=== PATIENT | female | born 1990 | race Caucasian/White ===

== ENCOUNTER 2016-05-26 15:53 | Emergency (ER) | payer OTHER ==
[~2016-05-26 15:53] MED LIST: ACET50TA PO; PRENTAB7 PO
[2016-05-26 18:05] LABS: BASO % 0.4 % (0.0-1.0); EOS # 0.2 K/mm3 (0.0-0.50); EOS % 2.2 % (0.0-3.0); LARGE UNSTAINED CELL # 0.1 K/mm3 (0.0-0.4); LARGE UNSTAINED CELL % 2.1 % (0.0-4.0); LYMPH # 1.8 K/mm3 (1.5-6.5); LYMPH % 25.7 % (24.0-44.0); MEAN CORPUSCULAR HEMOGLOBIN 30.3 pg (27.0-33.0); MEAN CORPUSCULAR HGB CONC 33.4 g/dl (32.0-36.5); MEAN CORPUSCULAR VOLUME 90.5 fl (80.0-96.0); MONO # 0.4 K/mm3 (0.0-0.8); MONO % 6.1 % (0.0-5.0); NEUTROPHILS # 4.4 K/mm3 (1.8-7.7); NEUTROPHILS % 63.6 % (36.0-66.0); PLATELET COUNT, AUTOMATED 179 k/mm3 (150-450); RED CELL DISTRIBUTION WIDTH 12.2 % (11.5-14.5); WHITE BLOOD COUNT 6.9 K/mm3 (4.0-10.0)
--- NOTE | 2016-05-26 18:33 | REP ---
Clinical: Renal colic. Technique: Real time thomas scale ultrasound examination using curved array transducer. Findings: With the exception of a 2 cm simple left lower pole renal cyst, the bilateral kidneys are normal in contour, size, echogenicity, and reniform shape. No hydronephrosis, nephrolithiasis, perinephric fluid or mass lesions are identified. Right kidney measures 10.7 x 4.5 x 4.5 cm. Left kidney measures 11.0 x 4.4 x 5.0 cm. The bladder is collapsed. Impression: 2 cm simple left renal cyst. Otherwise normal renal ultrasound. Signed by Alfonso Casas MD 05/26/2016 06:25 P
[2016-05-26 18:39] LABS: ANION GAP 7 MEQ/L (8-16); BLOOD UREA NITROGEN 7 MG/DL (7-18); CALCIUM LEVEL 9.1 MG/DL (8.5-10.1); CARBON DIOXIDE LEVEL 30 MEQ/L (21-32); CHLORIDE LEVEL 105 MEQ/L (98-107); CREATININE FOR GFR 0.79 MG/DL (0.55-1.02); GLOMERULAR FILTRATION RATE > 60.0 (>60); GLUCOSE, FASTING 83 MG/DL (70-105); POTASSIUM SERUM 3.8 MEQ/L (3.5-5.1); SODIUM LEVEL 142 MEQ/L (136-145)
[2016-05-26] MEDS ORDERED: CIPROFLOXACIN 500 MG TAB As Ordered ONE (19:56)
--- NOTE | 2016-05-26 20:12 | EDDOCDS ---
Nurse's Notes [facility] Name: Kate Ritter Age: 26 yrs Sex: Female : 1990 Arrival Date: 05/26/2016 Time: 15:53 Bed 15 Private MD: BARRETT Castro Diagnosis: Urinary tract infection, site not specified Presentation: 05/26 15:56 Presenting complaint:. dls 15:57 Presenting complaint: Patient states: Pt presents with c/o bilateral flank and lower dls abdominal pain x 2 days also urine has strong odor and pt has urinary urgency and frequency. Acute neurological deficits are not present. Mechanism of Injury: No Mechanism of Injury. Adult Sepsis Screening: The patient does not have new or worsening altered mentation. Patient's respiratory rate is less than 22. Systolic blood pressure is greater than 100. Patient has a qSOFA score of 0- Negative Sepsis Screen. Suicide/Homicide risk assessment- the patient denies having any suicidal and/or homicidal ideations and does not present with any other emotional, behavioral or mental health complaints. Status: The patient is a dependent. Transition of care: patient was not received from another setting of care. 15:57 Acuity: JOEY Level 3 dls 15:57 Method Of Arrival: Walkin/Carried/Asstd dls Triage Assessment: 16:02 General: Appears distressed, slender, uncomfortable, well developed, well nourished, dls well groomed, Behavior is cooperative. Pain: Pain currently is 6 out of 10 on a pain scale. HIV screening NA for this visit Offered previously. 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 Zoloft 75mg Oral tab 1 tab once daily 2. triliptal 150mg twice a day 3. clonazepam 0.5 mg Oral tab 1 tab daily - PMHx: anixety; Back issues, burning sensation in legs; Seizures; - PSHx: none; - Social history: Smoking status: Patient/guardian denies using No barriers to communication noted, The patient speaks fluent Portuguese. - Family history: Not pertinent. - : The pt / caregiver states he / she is not on anticoagulants. Home medication list is obtained from the patient. - Exposure Risk Screening:: None identified. Screenin:59 Screening information is obtained from the patient. Fall risk: No risks identified. [facility] Assistance ADL's: requires no assistance with activities of daily living. Abuse/DV Screen: The patient / caregiver reports he/she is: not in a situation that causes fear, pain or injury. Nutritional screening: No deficits noted. Advance Directives: There is no active DNR order. home support is adequate. Assessment: 18:00 General: Appears in no apparent distress, Behavior is cooperative. Pain: Location: low ld5 back area and mid back area Pain currently is 5 out of 10 on a pain scale. Pain radiates to anterior aspect of right lateral abdomen and anterior aspect of left lateral abdomen. Neurological: Level of Consciousness is awake, alert. Respiratory: Airway is patent Respiratory effort is even, unlabored. GI: Abdomen is non- distended Reports nausea, Denies vomiting. : Denies burning with urination, pain with urination. Derm: Skin is intact, Skin is dry. Musculoskeletal: Range of motion intact in all extremities. 19:59 General: Appears in no apparent distress, comfortable, Behavior is appropriate for age, [facility] cooperative. Pain: Location: abdomen and anterior aspect of left lateral abdomen and anterior aspect of right lateral abdomen and back and mid back area and low back area Pain currently is 5 out of 10 on a pain scale. Neurological: Level of Consciousness is awake, alert, Oriented to person, place, time. Respiratory: Airway is patent Respiratory effort is even, unlabored, Respiratory pattern is regular, symmetrical. Derm: Skin is pink, warm & dry. 20:09 General: reviewed discharge instructions with patient, encouraged and answered [facility] questions, declines offer of further assistance, no new problems or complaints voiced. Vital Signs: 15:57 BP 97 / 60; Pulse 94; Resp 18 S; Temp 96.4(O); Pulse Ox 99% on R/A; Weight 53.98 kg gr2 (R); Height 5 ft. 3 in. (160.02 cm) (R); Pain 5/10; 20:02 BP 110 / 62; Pulse 78; Resp 16; Temp 99.9; Pulse Ox 99% ; Pain 5/10; [facility] 15:57 Body Mass Index 21.08 (53.98 kg, 160.02 cm) 2 Vitals: 15:57 Log In Time: May 26, 2016 at 15:57. gr2 ED Course: 15:56 Patient visited by Lucian Espinal. gr2 15:56 [facility] is Private Physician. gr2 15:56 Patient moved to Waiting gr2 15:58 Patient visited by Lucian Espinal. gr2 15:59 Patient moved to Pre RCE gr2 16:00 Triage Initiated dls 17:15 Patient moved to 15 kcs 17:31 [facility] le 17:51 Patient visited by Raegan Rose FNP. le 17:51 Patient visited by Raegan Rose FNP. le 18:04 Patient moved to Ultrasound br3 18:05 UA Sent. ld5 18:05 Inserted saline lock: 20 gauge in right antecubital area and blood collected. The ld5 patient tolerated the procedure well. Labs drawn. (by ED staff). Sent per order to lab. Urine collected. Clean catch specimen. Urine specimen sent to lab. 18:12 Patient visited by Justina Godfrey RN. ld5 18:19 Patient moved to 15 br3 18:42 US Renal Returned. EDMS 19:39 [facility] Payment Agreement was scanned into [employer] and attached to record. zo 19:53 Matthew [facility] is Referral Physician. le 19:59 The patient / caregiver is instructed regarding the plan of care and ED course. [facility] 19:59 No procedures done that require assistance. [facility] 20:09 Discontinued lock intact, bleeding controlled, pressure dressing applied, No [facility] redness/swelling at site. Administered Medications: 18:05 Drug: NS 0.9% 1000 ml [sodium chloride 0.9 % intravenous solution] Route: IV; Rate: ld5 bolus; Site: right antecubital; 20:11 Follow up: IV Status: Completed infusion; IV Intake: 1000ml [facility] 19:59 Drug: Ciprofloxacin 500 mg [ciprofloxacin 500 mg tablet (1 tabs)] Route: PO; [facility] 20:11 Follow up: Response: Pt left department before re-evaluation is appropriate [facility] Point of Care Testing: Urine : 18:05 hCG Reading: Negative; Control Reading: Positive; ld5 Ranges: Order Results: Lab Order: CBC with Diff; SPEC'M 05/26/16 17:56 Test: WHITE BLOOD COUNT; Value: 6.9; Range: 4.0-10.0; Units: K/mm3; Status: F Test: RED BLOOD COUNT; Value: 3.94; Range: 4.00-5.40; Abnormal: Below low normal; Units: M/mm3; Status: F Test: HEMOGLOBIN; Value: 11.9; Range: 12.0-16.0; Abnormal: Below low normal; Units: g/dl; Status: F Test: HEMATOCRIT; Value: 35.7; Range: 36.0-47.0; Abnormal: Below low normal; Units: %; Status: F Test: MEAN CORPUSCULAR VOLUME; Value: 90.5; Range: 80.0-96.0; Units: fl; Status: F Test: MEAN CORPUSCULAR HEMOGLOBIN; Value: 30.3; Range: 27.0-33.0; Units: pg; Status: F Test: MEAN CORPUSCULAR HGB CONC; Value: 33.4; Range: 32.0-36.5; Units: g/dl; Status: F Test: RED CELL DISTRIBUTION WIDTH; Value: 12.2; Range: 11.5-14.5; Units: %; Status: F Test: PLATELET COUNT, AUTOMATED; Value: 179; Range: 150-450; Units: k/mm3; Status: F Test: NEUTROPHILS %; Value: 63.6; Range: 36.0-66.0; Units: %; Status: F Test: LYMPH %; Value: 25.7; Range: 24.0-44.0; Units: %; Status: F Test: MONO %; Value: 6.1; Range: 0.0-5.0; Abnormal: Above high normal; Units: %; Status: F Test: EOS %; Value: 2.2; Range: 0.0-3.0; Units: %; Status: F Test: BASO %; Value: 0.4; Range: 0.0-1.0; Units: %; Status: F Test: LARGE UNSTAINED CELL %; Value: 2.1; Range: 0.0-4.0; Units: %; Status: F Test: NEUTROPHILS #; Value: 4.4; Range: 1.8-7.7; Units: K/mm3; Status: F Test: LYMPH #; Value: 1.8; Range: 1.5-6.5; Units: K/mm3; Status: F Test: MONO #; Value: 0.4; Range: 0.0-0.8; Units: K/mm3; Status: F Test: EOS #; Value: 0.2; Range: 0.0-0.50; Units: K/mm3; Status: F Test: BASO #; Value: 0.0; Range: 0.0-0.2; Units: K/mm3; Status: F Test: LARGE UNSTAINED CELL #; Value: 0.1; Range: 0.0-0.4; Units: K/mm3; Status: F Lab Order: BMP; SPEC'M 05/26/16 17:56 Test: GLUCOSE, FASTING; Value: 83; Range: 70-105; Units: MG/DL; Status: F Test: BLOOD UREA NITROGEN; Value: 7; Range: 7-18; Units: MG/DL; Status: F Test: CREATININE FOR GFR; Value: 0.79; Range: 0.55-1.02; Units: MG/DL; Status: F Test: GLOMERULAR FILTRATION RATE; Value: > 60.0; Range: >60; Status: F Test: SODIUM LEVEL; Value: 142; Range: 136-145; Units: MEQ/L; Status: F Test: POTASSIUM SERUM; Value: 3.8; Range: 3.5-5.1; Units: MEQ/L; Status: F Test: CHLORIDE LEVEL; Value: 105; Range: 98-107; Units: MEQ/L; Status: F Test: CARBON DIOXIDE LEVEL; Value: 30; Range: 21-32; Units: MEQ/L; Status: F Test: ANION GAP; Value: 7; Range: 8-16; Abnormal: Below low normal; Units: MEQ/L; Status: F Test: CALCIUM LEVEL; Value: 9.1; Range: 8.5-10.1; Units: MG/DL; Status: F Test Note: ; Units are mL/min/1.73 m2 Chronic Kidney Disease Staging per NKF: Stage I & II GFR >=60 Normal to Mildly Decreased Stage III GFR 30-59 Moderately Decreased Stage IV GFR 15-29 Severely Decreased Stage V GFR <15 Very Little GFR Left ESRD GFR <15 on FIELD RECRUITER Lab Order: UA; SPEC'M 02/13/17 17:52 Test: APPEARANCE, URINE; Value: CLOUDY; Range: CLEAR; Abnormal: Above high normal; Status: F Test: COLOR, URINE; Value: YELLOW; Range: YELLOW; Status: F Test: PH,URINE; Value: 5.0; Range: 5.0-9.0; Units: UNITS; Status: F Test: SPECIFIC GRAVITY URINE AUTO; Value: 1.014; Range: 1.002-1.035; Status: F Test: PROTEIN, URINE AUTO; Value: 2+; Range: NEGATIVE; Abnormal: Above high normal; Units: mg/dL; Status: F Test: GLUCOSE, URINE (UA) AUTO; Value: NEGATIVE; Range: NEGATIVE; Units: mg/dL; Status: F Test: KETONE, URINE AUTO; Value: NEGATIVE; Range: NEGATIVE; Units: mg/dL; Status: F Test: UROBILINOGEN, URINE AUTO; Value: 0.2; Range: 0.0-2.0; Units: mg/dL; Status: F Test: BILIRUBIN, URINE AUTO; Value: NEGATIVE; Range: NEGATIVE; Status: F Test: NITRITE, URINE AUTO; Value: NEGATIVE; Range: NEGATIVE; Status: F Test: LEUKOCYTE ESTERASE, URINE AUTO; Value: 3+; Range: NEGATIVE; Abnormal: Above high normal; Status: F Test: BLOOD, URINE BLOOD; Value: 2+; Range: NEGATIVE; Abnormal: Above high normal; Status: F Test: WBC, URINE AUTO; Value: TNTC; Range: 0-3; Abnormal: Above high normal; Units: /HPF; Status: F Test: RBC, URINE AUTO; Value: 104; Range: 0-3; Abnormal: Above high normal; Units: /HPF; Status: F Test: BACTERIA, URINE AUTO; Value: 3+; Range: NEGATIVE; Abnormal: Above high normal; Status: F Test: SQUAMOUS EPITHELIAL CELL UR AU; Value: 4; Range: 0-6; Units: /HPF; Status: F Test: MUCUS, URINE; Value: SMALL; Range: NEGATIVE; Status: F Test: HYALINE CAST, URINE AUTO; Value: 0; Range: 0-1; Units: /LPF; Status: F Radiology Order: US Renal Test: US Renal REASON FOR EXAMINATION: Renal colic; Clinical: Renal colic.; ; Technique: Real time thomas scale ultrasound examination using curved array; transducer.; ; Findings:; With the exception of a 2 cm simple left lower pole renal cyst, the bilateral; kidneys are normal in contour, size, echogenicity, and reniform shape. No; hydronephrosis, nephrolithiasis, perinephric fluid or mass lesions are; identified. Right kidney measures 10.7 x 4.5 x 4.5 cm. Left kidney measures; 11.0 x 4.4 x 5.0 cm. The bladder is collapsed.; ; Impression:; 2 cm simple left renal cyst.; Otherwise normal renal ultrasound.; ; ; Signed by; Alfonso Casas MD 05/26/2016 06:25 P; Outcome: 19:53 Discharge ordered by Provider. 20:01 Ultrasound Study completed. [facility] 20:09 Discharge Assessment: Patient awake, alert and oriented x 3. No cognitive and/or [facility] functional deficits noted. Patient verbalized understanding of disposition instructions. patient administered narcotics - no. The following High Risk Discharge criteria are identified: None. Discharged to home ambulatory. Condition: good Condition: stable Condition: improved. Discharge instructions given to patient, Instructed on discharge instructions, follow up and referral plans. medication usage, Demonstrated understanding of instructions, medications, Pt was receptive of discharge instructions/ teaching. Prescriptions given X 1. Property :Personal belongings accompany Pt. 20:10 Patient left the ED. [facility] Signatures: Dispatcher [employer] Belkis Acosta, RN Rachel Olsen RN RN dls Iliana Garcia Lisa, COUNSEL COUNSEL Najma Toussaint br3 Justina Godfrey RN RN ld5 Anupama Davis RN RN [facility] Lucian Espinal gr2 MTDD
--- NOTE | 2016-05-26 20:12 | EDDOCDS ---
Physician Documentation [facility] Name: Kate Ritter Age: 26 yrs Sex: Female : 1990 Arrival Date: 05/26/2016 Time: 15:53 Bed 15 Private MD: BARRETT Castro Disposition: 05/26 19:54 Critical Care: Critical care not applicable. le Disposition: 05/26/16 19:53 Discharged to Home/Self Care. Impression: Urinary tract infection, site not specified. - Condition is Stable. - Discharge Instructions: Urinary Tract Infection. - Prescriptions for Cipro 500 mg Oral Tablet - take 1 tablet by ORAL route every 12 hours; 14 tablet. - Medication Reconciliation, Local Pharmacy Hours form. - Follow up: BARRETT Castro; When: Call to arrange an appointment; Reason: Recheck today's complaints, Continuance of care. - Problem is new. - Symptoms have improved. - Notes: Keep hydrated Return to the ED for any further concerns Historical: - Allergies: NSAIDS; - Home Meds: 1. Zoloft 75mg Oral tab 1 tab once daily 2. triliptal 150mg twice a day 3. clonazepam 0.5 mg Oral tab 1 tab daily - PMHx: anixety; Back issues, burning sensation in legs; Seizures; - PSHx: none; - Social history: Smoking status: Patient/guardian denies using No barriers to communication noted, The patient speaks fluent [place] Citizen. - Family history: Not pertinent. - : The pt / caregiver states he / she is not on anticoagulants. Home medication list is obtained from the patient. - Exposure Risk Screening:: None identified. 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 3 in. (160.02 cm) (R); Pain 5/10; 20:02 BP 110 / 62; Pulse 78; Resp 16; Temp 99.9; Pulse Ox 99% ; Pain 5/10; cjh 15:57 Body Mass Index 21.08 (53.98 kg, 160.02 cm) gr2 MDM: 17:49 IV Saline Lock ordered. le 17:49 NS 0.9% 1000 ml IV at bolus once ordered. le 17:49 UCG by Nursing ordered. le 17:50 CBC with Diff Ordered. EDMS 17:50 BMP Ordered. EDMS 17:50 UA Ordered. EDMS 17:58 US Renal Ordered. EDMS 19:23 Financial registration complete. zo 19:28 CBC with Diff Reviewed. le 19:28 BMP Reviewed. le 19:28 UA Reviewed. le 19:28 US Renal Reviewed. le 19:36 Ciprofloxacin 500 mg PO once ordered. le 19:39 [facility] Payment Agreement was scanned into [employer] and attached to record. jesenia Point of Care Testing: Urine : 18:05 hCG Reading: Negative; Control Reading: Positive; ld5 Ranges: Administered Medications: 18:05 Drug: NS 0.9% 1000 ml [sodium chloride 0.9 % intravenous solution] Route: IV; Rate: ld5 bolus; Site: right antecubital; 20:11 Follow up: IV Status: Completed infusion; IV Intake: 1000ml [facility] 19:59 Drug: Ciprofloxacin 500 mg [ciprofloxacin 500 mg tablet (1 tabs)] Route: PO; [facility] 20:11 Follow up: Response: Pt left department before re-evaluation is appropriate [facility] Signatures: Dispatcher [employer] Rachel Ambrosio, RN Iliana Aragon Lisa, PROFESSOR OF LITERACY PROFESSOR OF LITERACY Anupama Bills RN RN [facility] Justina Godfrey RN ld5 The chart was reviewed and I authenticate all verbal orders and agree with the evaluation and treatment provided.Attachments: :39 [facility] Payment Agreement zo MTDD
--- NOTE | 2016-05-28 21:12 | EDDOCDS ---
Physician Documentation [facility] Name: Kate Ritter Age: 26 yrs Sex: Female : 1990 Arrival Date: 05/26/2016 Time: 15:53 Bed 15 Private MD: BARRETT Castro Disposition: 05/26 19:54 Critical Care: Critical care not applicable. le Disposition: 05/26/16 19:53 Discharged to Home/Self Care. Impression: Urinary tract infection, site not specified. - Condition is Stable. - Discharge Instructions: Urinary Tract Infection. - Prescriptions for Cipro 500 mg Oral Tablet - take 1 tablet by ORAL route every 12 hours; 14 tablet. - Medication Reconciliation, Local Pharmacy Hours form. - Follow up: BARRETT Castro; When: Call to arrange an appointment; Reason: Recheck today's complaints, Continuance of care. - Problem is new. - Symptoms have improved. - Notes: Keep hydrated Return to the ED for any further concerns Historical: - Allergies: NSAIDS; - Home Meds: 1. Zoloft 75mg Oral tab 1 tab once daily 2. triliptal 150mg twice a day 3. clonazepam 0.5 mg Oral tab 1 tab daily - PMHx: anixety; Back issues, burning sensation in legs; Seizures; - PSHx: none; - Social history: Smoking status: Patient/guardian denies using No barriers to communication noted, The patient speaks fluent Sammarinese. - Family history: Not pertinent. - : The pt / caregiver states he / she is not on anticoagulants. Home medication list is obtained from the patient. - Exposure Risk Screening:: None identified. 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 3 in. (160.02 cm) (R); Pain 5/10; 20:02 BP 110 / 62; Pulse 78; Resp 16; Temp 99.9; Pulse Ox 99% ; Pain 5/10; cjh 15:57 Body Mass Index 21.08 (53.98 kg, 160.02 cm) gr2 MDM: 17:49 IV Saline Lock ordered. le 17:49 NS 0.9% 1000 ml IV at bolus once ordered. le 17:49 UCG by Nursing ordered. le 17:50 CBC with Diff Ordered. EDMS 17:50 BMP Ordered. EDMS 17:50 UA Ordered. EDMS 17:58 US Renal Ordered. EDMS 19:23 Financial registration complete. zo 19:28 CBC with Diff Reviewed. le 19:28 BMP Reviewed. le 19:28 UA Reviewed. le 19:28 US Renal Reviewed. le 19:36 Ciprofloxacin 500 mg PO once ordered. le 19:39 [facility] Payment Agreement was scanned into [employer] and attached to record. zo 05/27 11:17 T-Sheet-- Draft Copy was scanned into [employer] and attached to record. corazon Point of Care Testing: Urine : 05/26 18:05 hCG Reading: Negative; Control Reading: Positive; ld5 Ranges: Administered Medications: 18:05 Drug: NS 0.9% 1000 ml [sodium chloride 0.9 % intravenous solution] Route: IV; Rate: ld5 bolus; Site: right antecubital; 20:11 Follow up: IV Status: Completed infusion; IV Intake: 1000ml [facility] 19:59 Drug: Ciprofloxacin 500 mg [ciprofloxacin 500 mg tablet (1 tabs)] Route: PO; [facility] 20:11 Follow up: Response: Pt left department before re-evaluation is appropriate [facility] Signatures: Dispatcher [employer] Rachel Ambrosio RN RN dls Barnhardt, Gloria, Reg Reg Iliana Purdy Lisa, FNP FNP le Hafner, Jane, RN RN [facility] Justina Godfrey RN ld5 The chart was reviewed and I authenticate all verbal orders and agree with the evaluation and treatment provided.Attachments: 19:39 [facility] Payment Agreement zo 05/27 11:17 T-Sheet-- Draft Copy gb Chart Complete MTDD
--- NOTE | 2016-05-28 21:12 | EDDOCDS ---
Nurse's Notes [facility] Name: Kate Ritter Age: 26 yrs Sex: Female : 1990 Arrival Date: 05/26/2016 Time: 15:53 Bed 15 Private MD: BARRETT Castro Diagnosis: Urinary tract infection, site not specified Presentation: 05/26 15:56 Presenting complaint:. dls 15:57 Presenting complaint: Patient states: Pt presents with c/o bilateral flank and lower dls abdominal pain x 2 days also urine has strong odor and pt has urinary urgency and frequency. Acute neurological deficits are not present. Mechanism of Injury: No Mechanism of Injury. Adult Sepsis Screening: The patient does not have new or worsening altered mentation. Patient's respiratory rate is less than 22. Systolic blood pressure is greater than 100. Patient has a qSOFA score of 0- Negative Sepsis Screen. Suicide/Homicide risk assessment- the patient denies having any suicidal and/or homicidal ideations and does not present with any other emotional, behavioral or mental health complaints. Status: The patient is a dependent. Transition of care: patient was not received from another setting of care. 15:57 Acuity: JOEY Level 3 dls 15:57 Method Of Arrival: Walkin/Carried/Asstd dls Triage Assessment: 16:02 General: Appears distressed, slender, uncomfortable, well developed, well nourished, dls well groomed, Behavior is cooperative. Pain: Pain currently is 6 out of 10 on a pain scale. HIV screening NA for this visit Offered previously. 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 Zoloft 75mg Oral tab 1 tab once daily 2. triliptal 150mg twice a day 3. clonazepam 0.5 mg Oral tab 1 tab daily - PMHx: anixety; Back issues, burning sensation in legs; Seizures; - PSHx: none; - Social history: Smoking status: Patient/guardian denies using No barriers to communication noted, The patient speaks fluent Persian. - Family history: Not pertinent. - : The pt / caregiver states he / she is not on anticoagulants. Home medication list is obtained from the patient. - Exposure Risk Screening:: None identified. Screenin:59 Screening information is obtained from the patient. Fall risk: No risks identified. [place] Assistance ADL's: requires no assistance with activities of daily living. Abuse/DV Screen: The patient / caregiver reports he/she is: not in a situation that causes fear, pain or injury. Nutritional screening: No deficits noted. Advance Directives: There is no active DNR order. home support is adequate. Assessment: 18:00 General: Appears in no apparent distress, Behavior is cooperative. Pain: Location: low ld5 back area and mid back area Pain currently is 5 out of 10 on a pain scale. Pain radiates to anterior aspect of right lateral abdomen and anterior aspect of left lateral abdomen. Neurological: Level of Consciousness is awake, alert. Respiratory: Airway is patent Respiratory effort is even, unlabored. GI: Abdomen is non- distended Reports nausea, Denies vomiting. : Denies burning with urination, pain with urination. Derm: Skin is intact, Skin is dry. Musculoskeletal: Range of motion intact in all extremities. 19:59 General: Appears in no apparent distress, comfortable, Behavior is appropriate for age, [place] cooperative. Pain: Location: abdomen and anterior aspect of left lateral abdomen and anterior aspect of right lateral abdomen and back and mid back area and low back area Pain currently is 5 out of 10 on a pain scale. Neurological: Level of Consciousness is awake, alert, Oriented to person, place, time. Respiratory: Airway is patent Respiratory effort is even, unlabored, Respiratory pattern is regular, symmetrical. Derm: Skin is pink, warm & dry. 20:09 General: reviewed discharge instructions with patient, encouraged and answered [place] questions, declines offer of further assistance, no new problems or complaints voiced. Vital Signs: 15:57 BP 97 / 60; Pulse 94; Resp 18 S; Temp 96.4(O); Pulse Ox 99% on R/A; Weight 53.98 kg gr2 (R); Height 5 ft. 3 in. (160.02 cm) (R); Pain 5/10; 20:02 BP 110 / 62; Pulse 78; Resp 16; Temp 99.9; Pulse Ox 99% ; Pain 5/10; [place] 15:57 Body Mass Index 21.08 (53.98 kg, 160.02 cm) 2 Vitals: 15:57 Log In Time: May 26, 2016 at 15:57. gr2 ED Course: 15:56 Patient visited by Lucian Espinal. gr2 15:56 Matthew [facility] is Private Physician. gr2 15:56 Patient moved to Waiting gr2 15:58 Patient visited by Lucian Espinal. gr2 15:59 Patient moved to Pre RCE gr2 16:00 Triage Initiated dls 17:15 Patient moved to 15 kcs 17:31 [facility] le 17:51 Patient visited by Raegan Rose FNP. le 17:51 Patient visited by Raegan Rose FNP. le 18:04 Patient moved to Ultrasound br3 18:05 UA Sent. ld5 18:05 Inserted saline lock: 20 gauge in right antecubital area and blood collected. The ld5 patient tolerated the procedure well. Labs drawn. (by ED staff). Sent per order to lab. Urine collected. Clean catch specimen. Urine specimen sent to lab. 18:12 Patient visited by Justina Godfrey RN. ld5 18:19 Patient moved to 15 br3 18:42 US Renal Returned. EDMS 19:39 [facility] Payment Agreement was scanned into [employer] and attached to record. zo 19:53 Matthew [facility] is Referral Physician. le 19:59 The patient / caregiver is instructed regarding the plan of care and ED course. [place] 19:59 No procedures done that require assistance. [place] 20:09 Discontinued lock intact, bleeding controlled, pressure dressing applied, No [place] redness/swelling at site. 05/27 11:17 T-Sheet-- Draft Copy was scanned into [employer] and attached to record. gb Administered Medications: 05/26 18:05 Drug: NS 0.9% 1000 ml [sodium chloride 0.9 % intravenous solution] Route: IV; Rate: ld5 bolus; Site: right antecubital; 20:11 Follow up: IV Status: Completed infusion; IV Intake: 1000ml [place] 19:59 Drug: Ciprofloxacin 500 mg [ciprofloxacin 500 mg tablet (1 tabs)] Route: PO; [place] 20:11 Follow up: Response: Pt left department before re-evaluation is appropriate [place] Point of Care Testing: Urine : 18:05 hCG Reading: Negative; Control Reading: Positive; ld5 Ranges: Order Results: Lab Order: CBC with Diff; SPEC'M 05/26/16 17:56 Test: WHITE BLOOD COUNT; Value: 6.9; Range: 4.0-10.0; Units: K/mm3; Status: F Test: RED BLOOD COUNT; Value: 3.94; Range: 4.00-5.40; Abnormal: Below low normal; Units: M/mm3; Status: F Test: HEMOGLOBIN; Value: 11.9; Range: 12.0-16.0; Abnormal: Below low normal; Units: g/dl; Status: F Test: HEMATOCRIT; Value: 35.7; Range: 36.0-47.0; Abnormal: Below low normal; Units: %; Status: F Test: MEAN CORPUSCULAR VOLUME; Value: 90.5; Range: 80.0-96.0; Units: fl; Status: F Test: MEAN CORPUSCULAR HEMOGLOBIN; Value: 30.3; Range: 27.0-33.0; Units: pg; Status: F Test: MEAN CORPUSCULAR HGB CONC; Value: 33.4; Range: 32.0-36.5; Units: g/dl; Status: F Test: RED CELL DISTRIBUTION WIDTH; Value: 12.2; Range: 11.5-14.5; Units: %; Status: F Test: PLATELET COUNT, AUTOMATED; Value: 179; Range: 150-450; Units: k/mm3; Status: F Test: NEUTROPHILS %; Value: 63.6; Range: 36.0-66.0; Units: %; Status: F Test: LYMPH %; Value: 25.7; Range: 24.0-44.0; Units: %; Status: F Test: MONO %; Value: 6.1; Range: 0.0-5.0; Abnormal: Above high normal; Units: %; Status: F Test: EOS %; Value: 2.2; Range: 0.0-3.0; Units: %; Status: F Test: BASO %; Value: 0.4; Range: 0.0-1.0; Units: %; Status: F Test: LARGE UNSTAINED CELL %; Value: 2.1; Range: 0.0-4.0; Units: %; Status: F Test: NEUTROPHILS #; Value: 4.4; Range: 1.8-7.7; Units: K/mm3; Status: F Test: LYMPH #; Value: 1.8; Range: 1.5-6.5; Units: K/mm3; Status: F Test: MONO #; Value: 0.4; Range: 0.0-0.8; Units: K/mm3; Status: F Test: EOS #; Value: 0.2; Range: 0.0-0.50; Units: K/mm3; Status: F Test: BASO #; Value: 0.0; Range: 0.0-0.2; Units: K/mm3; Status: F Test: LARGE UNSTAINED CELL #; Value: 0.1; Range: 0.0-0.4; Units: K/mm3; Status: F Lab Order: [facility]; SPEC'M 05/26/16 17:56 Test: GLUCOSE, FASTING; Value: 83; Range: 70-105; Units: MG/DL; Status: F Test: BLOOD UREA NITROGEN; Value: 7; Range: 7-18; Units: MG/DL; Status: F Test: CREATININE FOR GFR; Value: 0.79; Range: 0.55-1.02; Units: MG/DL; Status: F Test: GLOMERULAR FILTRATION RATE; Value: > 60.0; Range: >60; Status: F Test: SODIUM LEVEL; Value: 142; Range: 136-145; Units: MEQ/L; Status: F Test: POTASSIUM SERUM; Value: 3.8; Range: 3.5-5.1; Units: MEQ/L; Status: F Test: CHLORIDE LEVEL; Value: 105; Range: 98-107; Units: MEQ/L; Status: F Test: CARBON DIOXIDE LEVEL; Value: 30; Range: 21-32; Units: MEQ/L; Status: F Test: ANION GAP; Value: 7; Range: 8-16; Abnormal: Below low normal; Units: MEQ/L; Status: F Test: CALCIUM LEVEL; Value: 9.1; Range: 8.5-10.1; Units: MG/DL; Status: F Test Note: ; Units are mL/min/1.73 m2 Chronic Kidney Disease Staging per NKF: Stage I & II GFR >=60 Normal to Mildly Decreased Stage III GFR 30-59 Moderately Decreased Stage IV GFR 15-29 Severely Decreased Stage V GFR <15 Very Little GFR Left ESRD GFR <15 on [place] PLUMBER Lab Order: UA; SPEC'M 05/26/16 17:52 Test: APPEARANCE, URINE; Value: CLOUDY; Range: CLEAR; Abnormal: Above high normal; Status: F Test: COLOR, URINE; Value: YELLOW; Range: YELLOW; Status: F Test: PH,URINE; Value: 5.0; Range: 5.0-9.0; Units: UNITS; Status: F Test: SPECIFIC GRAVITY URINE AUTO; Value: 1.014; Range: 1.002-1.035; Status: F Test: PROTEIN, URINE AUTO; Value: 2+; Range: NEGATIVE; Abnormal: Above high normal; Units: mg/dL; Status: F Test: GLUCOSE, URINE (UA) AUTO; Value: NEGATIVE; Range: NEGATIVE; Units: mg/dL; Status: F Test: KETONE, URINE AUTO; Value: NEGATIVE; Range: NEGATIVE; Units: mg/dL; Status: F Test: UROBILINOGEN, URINE AUTO; Value: 0.2; Range: 0.0-2.0; Units: mg/dL; Status: F Test: BILIRUBIN, URINE AUTO; Value: NEGATIVE; Range: NEGATIVE; Status: F Test: NITRITE, URINE AUTO; Value: NEGATIVE; Range: NEGATIVE; Status: F Test: LEUKOCYTE ESTERASE, URINE AUTO; Value: 3+; Range: NEGATIVE; Abnormal: Above high normal; Status: F Test: BLOOD, URINE BLOOD; Value: 2+; Range: NEGATIVE; Abnormal: Above high normal; Status: F Test: WBC, URINE AUTO; Value: TNTC; Range: 0-3; Abnormal: Above high normal; Units: /HPF; Status: F Test: RBC, URINE AUTO; Value: 104; Range: 0-3; Abnormal: Above high normal; Units: /HPF; Status: F Test: BACTERIA, URINE AUTO; Value: 3+; Range: NEGATIVE; Abnormal: Above high normal; Status: F Test: SQUAMOUS EPITHELIAL CELL UR AU; Value: 4; Range: 0-6; Units: /HPF; Status: F Test: MUCUS, URINE; Value: SMALL; Range: NEGATIVE; Status: F Test: HYALINE CAST, URINE AUTO; Value: 0; Range: 0-1; Units: /LPF; Status: F Radiology Order: US Renal Test: US Renal REASON FOR EXAMINATION: Renal colic; Clinical: Renal colic.; ; Technique: Real time thomas scale ultrasound examination using curved array; transducer.; ; Findings:; With the exception of a 2 cm simple left lower pole renal cyst, the bilateral; kidneys are normal in contour, size, echogenicity, and reniform shape. No; hydronephrosis, nephrolithiasis, perinephric fluid or mass lesions are; identified. Right kidney measures 10.7 x 4.5 x 4.5 cm. Left kidney measures; 11.0 x 4.4 x 5.0 cm. The bladder is collapsed.; ; Impression:; 2 cm simple left renal cyst.; Otherwise normal renal ultrasound.; ; ; Signed by; Alfonso Casas MD 05/26/2016 06:25 P; Outcome: 19:53 Discharge ordered by Provider. 20:01 Ultrasound Study completed. [place] 20:09 Discharge Assessment: Patient awake, alert and oriented x 3. No cognitive and/or [place] functional deficits noted. Patient verbalized understanding of disposition instructions. patient administered narcotics - no. The following High Risk Discharge criteria are identified: None. Discharged to home ambulatory. Condition: good Condition: stable Condition: improved. Discharge instructions given to patient, Instructed on discharge instructions, follow up and referral plans. medication usage, Demonstrated understanding of instructions, medications, Pt was receptive of discharge instructions/ teaching. Prescriptions given X 1. Property :Personal belongings accompany Pt. 20:10 Patient left the ED. [place] Signatures: Dispatcher [employer] Belkis Acosta RN RN kcs Scott, Debra, RN RN dls Barnhardt, Gloria, Reg Reg Iliana Purdy Lisa, ELODIA PURCHASING ADMINISTRATIVE ASSISTANTNajma Marino br3 Justina Godfrey RN RN ld5 Anupama Davis RN RN [place] Lucian Espinal gr2 Chart Complete MTDD
--- NOTE | 2016-05-28 21:12 | EDDOCDS ---
Physician Documentation [facility] Name: Kate Ritter Age: 26 yrs Sex: Female : 1990 Arrival Date: 05/26/2016 Time: 15:53 Bed 15 Private MD: BARRETT Castro Disposition: 05/26 19:54 Critical Care: Critical care not applicable. le Disposition: 05/26/16 19:53 Discharged to Home/Self Care. Impression: Urinary tract infection, site not specified. - Condition is Stable. - Discharge Instructions: Urinary Tract Infection. - Prescriptions for Cipro 500 mg Oral Tablet - take 1 tablet by ORAL route every 12 hours; 14 tablet. - Medication Reconciliation, Local Pharmacy Hours form. - Follow up: BARRETT Castro; When: Call to arrange an appointment; Reason: Recheck today's complaints, Continuance of care. - Problem is new. - Symptoms have improved. - Notes: Keep hydrated Return to the ED for any further concerns Historical: - Allergies: NSAIDS; - Home Meds: 1. Zoloft 75mg Oral tab 1 tab once daily 2. triliptal 150mg twice a day 3. clonazepam 0.5 mg Oral tab 1 tab daily - PMHx: anixety; Back issues, burning sensation in legs; Seizures; - PSHx: none; - Social history: Smoking status: Patient/guardian denies using No barriers to communication noted, The patient speaks fluent Samoan. - Family history: Not pertinent. - : The pt / caregiver states he / she is not on anticoagulants. Home medication list is obtained from the patient. - Exposure Risk Screening:: None identified. 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 3 in. (160.02 cm) (R); Pain 5/10; 20:02 BP 110 / 62; Pulse 78; Resp 16; Temp 99.9; Pulse Ox 99% ; Pain 5/10; cjh 15:57 Body Mass Index 21.08 (53.98 kg, 160.02 cm) gr2 MDM: 17:49 IV Saline Lock ordered. le 17:49 NS 0.9% 1000 ml IV at bolus once ordered. le 17:49 UCG by Nursing ordered. le 17:50 CBC with Diff Ordered. EDMS 17:50 BMP Ordered. EDMS 17:50 UA Ordered. EDMS 17:58 US Renal Ordered. EDMS 19:23 Financial registration complete. zo 19:28 CBC with Diff Reviewed. le 19:28 BMP Reviewed. le 19:28 UA Reviewed. le 19:28 US Renal Reviewed. le 19:36 Ciprofloxacin 500 mg PO once ordered. le 19:39 [facility] Payment Agreement was scanned into [email or web address] and attached to record. zo 05/27 11:17 T-Sheet-- Draft Copy was scanned into [email or web address] and attached to record. [email or web address] Point of Care Testing: Urine : 05/26 18:05 hCG Reading: Negative; Control Reading: Positive; ld5 Ranges: Administered Medications: 18:05 Drug: NS 0.9% 1000 ml [sodium chloride 0.9 % intravenous solution] Route: IV; Rate: ld5 bolus; Site: right antecubital; 20:11 Follow up: IV Status: Completed infusion; IV Intake: 1000ml [facility] 19:59 Drug: Ciprofloxacin 500 mg [ciprofloxacin 500 mg tablet (1 tabs)] Route: PO; [facility] 20:11 Follow up: Response: Pt left department before re-evaluation is appropriate [facility] Signatures: Dispatcher [employer] Rachel Ambrosio RN RN dls Barnhardt, Gloria, Reg Reg Iliana Purdy Lisa, FNP FNP le Hafner, Jane, RN RN [facility] Justina Godfrey RN ld5 The chart was reviewed and I authenticate all verbal orders and agree with the evaluation and treatment provided.Attachments: 19:39 [facility] Payment Agreement zo 05/27 11:17 T-Sheet-- Draft Copy gb Chart Complete MTDD
== END 2016-05-26 20:10 | disposition home or self-care (01) ==
LOC: M ED 15:53
DX: N39.0 Urinary tract infection, site not specified (principal); F41.9 Anxiety disorder, unspecified; M51.9 Unspecified thoracic, thoracolumbar and lumbosacral intervertebral disc disorder; R56.9 Unspecified convulsions; Z79.899 Other long term (current) drug therapy; Z88.8 Allergy status to other drugs, medicaments and biological substances

== ENCOUNTER → 2016-06-16 | Outpatient (CLI) | payer OTHER ==
--- NOTE | 2016-06-16 14:28 | REP ---
RIGHT HIP, TWO VIEWS: HISTORY: Lateral pain. There is no acute fracture or dislocation. The joint space is normal in appearance. IMPRESSION: There is no acute fracture or dislocation. Signed by Odell Elliott MD 06/16/2016 02:35 P
== END ==
LOC: M WUC 13:30
PROVIDERS: ATTEND Physician Assistant
DX: M25.551 Pain in right hip (principal)